=== PATIENT | male | born 1970 | race Caucasian/White ===

== ENCOUNTER 2017-08-01 20:33 | Observation (INO) | payer OTHER ==
[~2017-08-01] VITALS: Ht 182.9 cm; Wt 131.1 kg
[~2017-08-01 20:33] MED LIST: Aspirin PO; Enoxaparin Sodium SQ; SERT100T8 PO; WARF10TA45 PO; WARF4TAB7 PO
--- NOTE | 2017-08-01 20:50 | RAD ---
CT head without contrast 08/01/2017 CLINICAL INDICATION: Weakness, confusion, dizziness. COMPARISON: CT head 09/26/2014. TECHNIQUE: Multiple CT images of the head were obtained without contrast according to standard protocol. *One or more of the following individualized dose reduction techniques were utilized for this examination: 1. Automated exposure control. 2. Adjustment of the mA and/or kV according to patient size. 3. Use of iterative reconstruction technique. FINDINGS: No acute intracranial hemorrhage or extra-axial fluid collection. The bellamy-white matter interfaces are maintained. The ventricles and subarachnoid spaces are normal in size and configuration for age. The basal cisterns are patent. No midline shift. The visualized mastoid air cells and paranasal sinuses are well aerated. IMPRESSION: No acute intracranial hemorrhage. These results were discussed with Dr. Sal of the emergency service by telephone at 8:45 PM 08/01/[address] Deondre Jo. Electronically signed by: Deondre Jo MD (08/01/2017 8:46 PM) [facility]
[2017-08-01 21:17] LABS: BASO # 0.1 x10^3/uL (0.0-0.2); BASO % 1 % (0-3); EOS # 0.2 x10^3/uL (0.0-0.7); EOS % 3 % (0-3); HEMATOCRIT 43.3 % (39.0-53.0); HEMOGLOBIN 14.8 g/dL (13.0-17.5); LYMPH # 3.1 x10^3/uL (1.0-4.8); LYMPH % 34 % (24-48); MEAN CORPUSCULAR HEMOGLOBIN 31 pg (25-35); MEAN CORPUSCULAR HGB CONC 34 g/dL (31-37); MEAN CORPUSCULAR VOLUME 90 fL (79-100); MONO # 0.7 x10^3/uL (0.0-1.1); MONO % 8 % (0-9); NEUT # 4.9 x10^3uL (1.8-7.7); NEUT % 54 % (31-73); PLATELET COUNT 181 x10^3/uL (140-400); RED BLOOD COUNT 4.83 x10^6/uL (4.30-5.70); RED CELL DISTRIBUTION WIDTH 13.6 % (11.5-14.5); WHITE BLOOD COUNT 9.1 x10^3/uL (4.0-11.0)
[2017-08-01 21:25] LABS: BARBITURATES NEG (NEG); BENZODIAZEPINES NEG (NEG); CANNABINOIDS NEG (NEG); COCAINE NEG (NEG); METHADONE NEG (NEG); OPIATES NEG (NEG); PHENCYCLIDINE NEG (NEG)
[2017-08-01 21:26] LABS: ALBUMIN/GLOBULIN RATIO 1.1 (1.0-1.7); CREATININE 1.2 mg/dL (0.7-1.3); GFR 64.4; POTASSIUM 3.5 mmol/L (3.5-5.1); TOTAL BILIRUBIN 0.3 mg/dL (0.2-1.0); TOTAL PROTEIN 7.5 g/dL (6.4-8.2)
[2017-08-01 21:26] LABS: AMPHETAMINE/METHAMPHETAMINE NEG (NEG)
[2017-08-01] MEDS ORDERED: ONDANSETRON PF 4 MG/2 ML VIAL. IV ONE (22:00)
--- NOTE | 2017-08-01 22:10 | PHYS DOC ---
General Chief Complaint: NEURO SYMPTOMS/DEFICITS Stated Complaint: weakness Time Seen by MD: 20:38 Source: patient, family, old records Exam Limitations: no limitations Problems: History of Present Illness Initial Comments Patient is a 47-year-old male brought to the ED by his with possible stroke symptoms. Patient states that 20 minutes prior to arrival he was getting ready to go to bed when he felt a sudden onset of slurred speech, right face, arm and leg weakness and "heaviness." No headache chest pain or trouble breathing, no nausea vomiting or other symptoms. He brought this to the attention of his spouse felt he might have a right-sided facial droop and she brought into the emergency department for evaluation. On arrival code stroke activated, patient states that the weakness and droop symptoms resolved prior to arrival. Patient's only symptoms on arrival are persistent "heaviness" of his right arm and leg however patient was ambulatory and no actual weakness observed by ED staff. On exam there appears to be a decreased right-sided nasolabial fold however the patient's spouse states this is his normal appearance. Patient has history of PE in 2013, he also relays his brother had a pulmonary embolus patient was on Coumadin for approximately 8-9 months before he says his physician allowed him to discontinue it. Patient states he follows with Melanie Reyes. On arrival HR 47, BP 125/70, 96% RA NIHSS 1 (sensory) Timing/Duration: 1/2 hour, other Severity: moderate Modifying Factors: improves with other Associated Symptoms: weakness Allergies: Coded Allergies: Penicillins (Verified Allergy, Intermediate, 06/10/14) cortisone (Verified Allergy, Intermediate, 06/10/14) Past Medical History Medical History: other (PE, bradycardia, CLAUDE, anxiety) Surgical History: noncontributory, other (appendectomy, umbilical herniorrhaphy , cholecystectomy, tonsillectomy, uvulectomy, gastric sleeve) Psychosocial History: anxiety Social History Smoker: other (patient smoked for a very short period in the remote past) Alcohol: none Drugs: none Review of Systems Constitutional: denies chills, denies diaphoresis, denies fever, denies malaise EENTM: denies eye pain, denies blurred vision, denies ear pain, denies nose pain, denies throat pain Respiratory: denies cough, denies shortness of breath, denies wheezing Cardiovascular: denies chest pain, denies edema, denies palpitations, denies syncope Gastrointestinal: denies abdominal pain, denies diarrhea, denies nausea, denies vomiting Genitourinary: denies dysuria, denies frequency, denies hematuria Musculoskeletal: denies back pain, denies joint swelling, denies muscle pain, denies muscle stiffness, denies neck pain Psychiatric/Neurological: see HPI, denies headache Hematologic/Lymphatic: see HPI Physical Exam General Appearance: no apparent distress, obese Eyes: bilateral eye normal inspection, bilateral eye PERRL, bilateral eye EOMI Ear, Nose, Throat: hearing grossly normal, normal ENT inspection, normal pharynx Neck: non-tender, full range of motion, supple Respiratory: chest non-tender, lungs clear, normal breath sounds, no respiratory distress Cardiovascular: normal peripheral pulses, bradycardia Gastrointestinal: normal bowel sounds, non tender, soft Back: no CVA tenderness, no vertebral tenderness Extremities: normal range of motion, non-tender, normal inspection, no pedal edema, no calf tenderness, pelvis stable Neurologic/Psychiatric: deputy general counsel II-XII nml as tested, no motor/sensory deficits, alert, normal mood/affect, oriented x 3 Skin: normal color, warm/dry Orders, Labs, Meds EKG: Sinus bradycardia at 49 bpm, nonspecific T contour changes no STEMI. Interpreted by Dr. Bojorquez. Portable chest x-ray: Enlarged cardiac silhouette no acute cardiopulmonary process. Interpreted by Dr. Bojorquez. PATIENT: MIKE FLORENCE ACCOUNT: [id number] : 1970 LOCATION: ER AGE: 47 SEX: M EXAM STATUS: REG ER ORD. PHYSICIAN: MIRLANDE BOJORQUEZ DO REASON: CVA symptoms PROCEDURE: CT CODE STROKE HEAD WO CT head without contrast 08/01/2017 CLINICAL INDICATION: Weakness, confusion, dizziness. COMPARISON: CT head 09/26/2014. TECHNIQUE: Multiple CT images of the head were obtained without contrast according to standard protocol. *One or more of the following individualized dose reduction techniques were utilized for this examination: 1. Automated exposure control. 2. Adjustment of the mA and/or kV according to patient size. 3. Use of iterative reconstruction technique. FINDINGS: No acute intracranial hemorrhage or extra-axial fluid collection. The bellamy-white matter interfaces are maintained. The ventricles and subarachnoid spaces are normal in size and configuration for age. The basal cisterns are patent. No midline shift. The visualized mastoid air cells and paranasal sinuses are well aerated. IMPRESSION: No acute intracranial hemorrhage. These results were discussed with Dr. Bojorquez of the emergency service by telephone at 8:45 PM 08/01/[address] Krista Jo. Electronically signed by: Krista Jo MD (08/01/2017 8:46 PM) [facility] DICTATED AND SIGNED BY: KRISTA JO MD DATE: 08/01/172041 CC: YAMINI HALL DO; MIRLANDE BOJORQUEZ DO ~ D-dimer 1.03, no urine submitted in the emergency department otherwise labs are normal. I discussed findings with the patient and his family, given his history I feel admission to the hospital for further evaluation to rule out PE/DVT is indicated. Additionally he may have had a TIA. Patient is agreeable to inpatient treatment. 2232: I discussed the patient with on-call neurologist Dr. Conway, he is agreeable to consultation for weakness symptoms at [facility]. 2246: I discussed the patient with counterperson hospitalist Dr. Gibbons, he accepts inpatient telemetry admission to further evaluate nonspecific neurologic symptoms and to rule out DVT/PE. At the time of admission lower extremity Dopplers and CTA of the chest are pending. 2339: Patient left the department via EMS with no new or progressive symptoms. CTA of the chest reveals no PE, we'll hold off on anticoagulation until indicated. Impressions: Right sided sensory changes, possible TIA Elevated d-dimer History of PE Sinus bradycardia Departure Time of Disposition: 23:40 Disposition: ADMITTED INPATIENT Condition: STABLE MIRLANDE BOJORQUEZ DO Aug 01, 2017 22:10
[2017-08-01 22:30] LABS: SEDIMENTATION RATE 3 (0-15)
[2017-08-01] MEDS ORDERED: ONDANSETRON PF 4 MG/2 ML VIAL. IV PRN (23:00)
[2017-08-01] MEDS ORDERED: ACETAMINOPHEN 325 MG TABLET PO PRN (23:00)
[2017-08-01] MEDS ORDERED: IOHEXOL 300 MG/ML 75 ML VIAL. IV ONE (23:00)
--- NOTE | 2017-08-01 23:23 | RAD ---
CTA chest with contrast 08/01/2017 CLINICAL INDICATION: Shortness of air, elevated d-dimer, dizziness. COMPARISON: CTA chest 06/07/2014. TECHNIQUE: Multiple CTA images of the chest were obtained following the intravenous administration of Omnipaque 300 for optimization of the pulmonary arteries. MIPS were performed of the chest. *One or more of the following individualized dose reduction techniques were utilized for this examination: 1. Automated exposure control. 2. Adjustment of the mA and/or kV according to patient size. 3. Use of iterative reconstruction technique. CTA chest findings: Mild cardiomegaly without significant pericardial effusion. There is mild dilatation of the ascending thoracic aorta measuring 4.0 cm. No central or major segmental pulmonary artery filling defect. No axillary, mediastinal or hilar lymphadenopathy. There is mosaic attenuation. No pleural effusion, pneumothorax or focal consolidation. There is multilevel thoracic spondylosis no destructive osseous lesions are graft Limited images of the upper abdomen: Grossly unremarkable. IMPRESSION: 1. No central or major segmental pulmonary artery filling defect to suggest pulmonary embolism. 2. Mild cardiomegaly. 3. Mosaic attenuation in the lungs which may represent small airways disease. 4. Mild dilatation of the ascending thoracic aorta measuring 4.0 cm. Electronically signed by: Deondre Jo MD (08/01/2017 11:20 PM) [facility]
[2017-08-01 23:40] VITALS: BP 128/78
--- NOTE | 2017-08-01 23:40 | NUR ---
Pt was admitted to [address] [place] [address] from ER via [facility], accompanied by EMS and nursing staff. Pt self transferred from [facility] to bed independently. Pt came into ER tonight with c/o right sided heaviness/weakness. Pt has a hx of PE and stated "it feels like that again." CTA negative for PE. Pt no longer takes anticoagulant. Admission assessment completed. VSS. Pt placed on Telemetry, Vandana Gagnon noted on monitor. Pt with equal gripes and strength to all extremities. Health history & home medications reviewed with pt. Pt lives at home with and family. SCDs for VTE. Pt refuses flu & pneumonia vaccine. Pt was given written information regarding hospital policies, unit procedures and contact persons. Valuables were checked and left at bedside. Call light within reach.
[2017-08-02] MEDS ORDERED: SACC250C8 PO (00:24)
[2017-08-02 04:03] LABS: BASO # 0.1 x10^3/uL (0.0-0.2); BASO % 1 % (0-3); EOS # 0.1 x10^3/uL (0.0-0.7); EOS % 1 % (0-3); HEMATOCRIT 42.7 % (39.0-53.0); HEMOGLOBIN 14.4 g/dL (13.0-17.5); LYMPH # 1.7 x10^3/uL (1.0-4.8); LYMPH % 18 % (24-48); MEAN CORPUSCULAR HEMOGLOBIN 30 pg (25-35); MEAN CORPUSCULAR HGB CONC 34 g/dL (31-37); MEAN CORPUSCULAR VOLUME 90 fL (79-100); MONO # 0.6 x10^3/uL (0.0-1.1); MONO % 6 % (0-9); NEUT # 6.9 x10^3uL (1.8-7.7); NEUT % 75 % (31-73); PLATELET COUNT 171 x10^3/uL (140-400); RED BLOOD COUNT 4.73 x10^6/uL (4.30-5.70); RED CELL DISTRIBUTION WIDTH 13.5 % (11.5-14.5); WHITE BLOOD COUNT 9.2 x10^3/uL (4.0-11.0)
[2017-08-02 04:19] LABS: CALCIUM 8.8 mg/dL (8.5-10.1); GFR 79.4; POTASSIUM 4.6 mmol/L (3.5-5.1)
[2017-08-02 05:35] VITALS: BP 120/75
--- NOTE | 2017-08-02 07:00 | EKG ---
[address] [address] Test Date: 2017-08-01 Test Time: 21:02:08 Pat Name: MIKE FLORENCE Department: Room: 115 A Gender: M [employer] Supervisor: ASHLYN : 1970 Requested By: MIRLANDE BOJORQUEZ Order Number: [id number] Reading MD: Nathan Naranjo MD Measurements Intervals [place] Rate: 49 P: 25 NV: 130 QRS: -6 QRSD: 116 T: 28 QT: 484 QTc: 440 Interpretive Statements SINUS BRADYCARDIA NON-SPECIFIC ST/T CHANGES Electronically Signed On 08-10-2017 17:27:02 [employer] PROJECT MANAGER by Nathan Naranjo MD
--- NOTE | 2017-08-02 08:02 | RAD ---
Indication: Dizziness and weakness. Time of exam 9 hours. Correlation is made with prior chest from 09/26/2014. The heart remains enlarged but stable. The lungs are clear. The pulmonary vascularity is normal. No infiltrate, effusion or pneumothorax is seen. Impression: Cardiomegaly. No acute feature is detected.
--- NOTE | 2017-08-02 08:47 | RAD ---
Bilateral lower extremity venous duplex ultrasound. 08/02/2017 Indication: Pulmonary embolism. Elevated d-dimer. Evaluate for source of PE. Comparison study: None Discussion: Sonographic evaluation of the deep veins of bilateral lower extremities was performed. This includes grayscale imaging and color duplex imaging with spectral analysis. No evidence of deep venous thrombosis is seen. Interrogated veins are compressible and demonstrate augmentable blood flow and color Doppler imaging. Impression: No evidence of deep venous thrombosis involving either lower extremity.
--- NOTE | 2017-08-02 09:05 | NUR ---
Notified Dr. Naranjo office for cardiology consult.
--- NOTE | 2017-08-02 09:22 | PDOC2 ---
JDAMIRA Allen SANCHEZ 08/02/17 0922: CONSULT Date of Admission DATE: 08/02/17 TIME: 09:19 Reason for Consult: bradycardia Problem List Problems Medical Problems: (1) Elevated d-dimer Status: Acute (2) Neurological symptoms Status: Acute History of Present Illness Patient is a 47-year-old male brought to the ED by his with possible stroke symptoms. He reports sudden onset of slurred speech, right face, arm and leg weakness and "heaviness" that started while getting ready for bed. He told his about his symptoms and she apparently thought he had some facial drooping on the right so brought him to the ED. On arrival his only persistent symptoms were some residual heaviness of right sided extremities. His symptoms lasted total about 40 minutes. He denies any chest pain, dyspnea, congestive symptoms or syncope. He was noted to be bradycardic so cardiology consult was called. He reports that his heart rate normally runs low in the 50s. He denies any exertional symptoms or fatigue. He is currently symptom free. Past Medical History Medical History: other (PE, bradycardia, CLAUDE, anxiety, obesity, neurocardiogenic syncope) Past Surgical History Surgical History: noncontributory, other (appendectomy, umbilical herniorrhaphy , cholecystectomy, tonsillectomy, uvulectomy, gastric sleeve) Family History brother - coagulopathy Social History Smoker: remote Alcohol: none Drugs: none Current Medications Current Medications Ondansetron HCl (Zofran) 4 mg 1X ONCE IV Last administered on 08/01/17 22:02 ; Start 08/01/17 at 22:00; Stop 08/01/17 at 22:06; Status DC Iohexol (Omnipaque 300 Mg/ml) 75 ml 1X ONCE IV Last administered on 08/01/17 23:02; Start 08/01/17 at 23:00; Stop 08/01/17 at 23:02; Status DC Ondansetron HCl (Zofran) 4 mg PRN Q4HRS PRN IV NAUSEA/VOMITING; Start 08/01/17 at 23:00; Stop 08/02/17 at 22:59 Acetaminophen (Tylenol) 650 mg PRN Q4HRS PRN PO FEVER; Start 08/01/17 at 23:00 ; Stop 08/02/17 at 22:59 Active Scripts Active Reported Probiotic (Saccharomyces Boulardii) 250 Mg Capsule 1 Cap PO HS LAST DOSE GIVEN: DATE: TIME: NEXT DOSE DUE: DATE: TIME: Sertraline Hcl 100 Mg Tablet 200 Mg PO HS LAST DOSE GIVEN: DATE: TIME: NEXT DOSE DUE: DATE: TIME: Allergies: Coded Allergies: Penicillins (Verified Allergy, Intermediate, 06/10/14) cortisone (Verified Allergy, Intermediate, 06/10/14) Review of System as per HPI or negative General: Alert, Oriented X3, Cooperative, No acute distress HEENT: Atraumatic, EOMI Lungs: Clear to auscultation, Normal air movement Heart: Normal S1, Normal S2, Other (bradycardic) Abdomen: Normal bowel sounds, Soft Extremities: No cyanosis, No edema, Normal pulses Neuro: Normal speech, Strength at 5/5 X4 ext Psych/Mental Status: Mental status NL, Mood NL VITALS Vital Signs Date Time Temp Pulse Resp B/P (MAP) Pulse Ox O2 Delivery O2 Flow Rate FiO2 08/02/17 05:35 97.2 48 18 120/75 (90) 96 Room Air Labs Laboratory Tests Test 08/01/17 20:43 08/01/17 20:51 08/02/17 03:50 White Blood Count 9.1 x10^3/uL (4.0-11.0) 9.2 x10^3/uL (4.0-11.0) Red Blood Count 4.83 x10^6/uL (4.30-5.70) 4.73 x10^6/uL (4.30-5.70) Hemoglobin 14.8 g/dL (13.0-17.5) 14.4 g/dL (13.0-17.5) Hematocrit 43.3 % (39.0-53.0) 42.7 % (39.0-53.0) Mean Corpuscular Volume 90 fL (79-100) 90 fL (79-100) Mean Corpuscular Hemoglobin 31 pg (25-35) 30 pg (25-35) Mean Corpuscular Hemoglobin Concent 34 g/dL (31-37) 34 g/dL (31-37) Red Cell Distribution Width 13.6 % (11.5-14.5) 13.5 % (11.5-14.5) Platelet Count 181 x10^3/uL (140-400) 171 x10^3/uL (140-400) Neutrophils (%) (Auto) 54 % (31-73) 75 % (31-73) Lymphocytes (%) (Auto) 34 % (24-48) 18 % (24-48) Monocytes (%) (Auto) 8 % (0-9) 6 % (0-9) Eosinophils (%) (Auto) 3 % (0-3) 1 % (0-3) Basophils (%) (Auto) 1 % (0-3) 1 % (0-3) Neutrophils # (Auto) 4.9 x10^3uL (1.8-7.7) 6.9 x10^3uL (1.8-7.7) Lymphocytes # (Auto) 3.1 x10^3/uL (1.0-4.8) 1.7 x10^3/uL (1.0-4.8) Monocytes # (Auto) 0.7 x10^3/uL (0.0-1.1) 0.6 x10^3/uL (0.0-1.1) Eosinophils # (Auto) 0.2 x10^3/uL (0.0-0.7) 0.1 x10^3/uL (0.0-0.7) Basophils # (Auto) 0.1 x10^3/uL (0.0-0.2) 0.1 x10^3/uL (0.0-0.2) Erythrocyte Sedimentation Rate 3 (0-15) Prothrombin Time 10.1 SEC (9.4-11.4) Prothromb Time International Ratio 1.0 (0.9-1.1) Activated Partial Thromboplast Time 23 SEC (23-33) D-Dimer (Anjana) 1.03 mg/L (0.00-0.50) Sodium Level 144 mmol/L (136-145) 143 mmol/L (136-145) Potassium Level 3.5 mmol/L (3.5-5.1) 4.6 mmol/L (3.5-5.1) Chloride Level 106 mmol/L (98-107) 107 mmol/L (98-107) Carbon Dioxide Level 28 mmol/L (21-32) 29 mmol/L (21-32) Anion Gap 10 (6-14) 7 (6-14) Blood Urea Nitrogen 18 mg/dL (8-26) 18 mg/dL (8-26) Creatinine 1.2 mg/dL (0.7-1.3) 1.0 mg/dL (0.7-1.3) Estimated GFR (Cockcroft-Gault) 64.4 79.4 BUN/Creatinine Ratio 15 (6-20) Glucose Level 98 mg/dL (70-99) 113 mg/dL (70-99) Glucose (Fingerstick) 98 mg/dL (70-99) Calcium Level 9.0 mg/dL (8.5-10.1) 8.8 mg/dL (8.5-10.1) Total Bilirubin 0.3 mg/dL (0.2-1.0) Aspartate Amino Transf (AST/SGOT) 10 U/L (15-37) Alanine Aminotransferase (ALT/SGPT) 21 U/L (16-63) Alkaline Phosphatase 75 U/L (46-116) Creatine Kinase 73 U/L (39-308) Troponin I Quantitative < 0.017 ng/mL (0-0.055) < 0.017 ng/mL (0-0.055) MD-Loc-W-Type Natriuretic Peptide 43 pg/mL (0-124) Total Protein 7.5 g/dL (6.4-8.2) Albumin 4.0 g/dL (3.4-5.0) Albumin/Globulin Ratio 1.1 (1.0-1.7) Urine Opiates Screen Neg (NEG) Urine Methadone Screen Neg (NEG) Urine Barbiturates Neg (NEG) Urine Phencyclidine Screen Neg (NEG) Urine Amphetamine/Methamphetamine Neg (NEG) Urine Benzodiazepines Screen Neg (NEG) Urine Cocaine Screen Neg (NEG) Urine Cannabinoids Screen Neg (NEG) Urine Ethyl Alcohol Neg (NEG) Images CTA IMPRESSION: 1. No central or major segmental pulmonary artery filling defect to suggest pulmonary embolism. 2. Mild cardiomegaly. 3. Mosaic attenuation in the lungs which may represent small airways disease. 4. Mild dilatation of the ascending thoracic aorta measuring 4.0 cm. LEUS negative for DVT CXR - Impression: Cardiomegaly. No acute feature is detected. EKG - sinus bradycardia, left axis, IVCD, no acute abn Assessment/Plan 1. bradycardia - he appears to have appropriate chronotropic response. He remains asymptomatic. check TSH/T4. Suggest outpatient event monitoring. 2. TIA - echo with bubble study. Neuro following. 3. CLAUDE - outpatient home sleep study and if abn, CPAP titration for new settings. Problems: MELANIA HOFFMAN MD 08/02/17 1614: CONSULT Allergies: Coded Allergies: Penicillins (Verified Allergy, Intermediate, 06/10/14) cortisone (Verified Allergy, Intermediate, 06/10/14) Assessment/Plan Patient seen and examined. Agree with USED CAR MANAGER's assessment and plan. Telemetry did not show any significant pauses. Check 2-D echo to assess LV systolic function and bubble study to rule out PFO/ ASD. Consider initiation of aspirin for possible TIA. Defer this to neurology. Plan for event monitor as an outpatient. Thank you for your consultation. Problems: AMIRA MILES APRN Aug 02, 2017 09:22 MELANIA HOFFMAN MD Aug 02, 2017 16:14
--- NOTE | 2017-08-02 09:41 | NUR ---
Pt has been out in the [place] walking with PT/OT, seen by Dr. Conway and Lizzy BYNUM. Couple new tests/labs ordered for pt. Denies pain or further needs at this time. Telemetry remains on and bradycardia noted. No weakness or facial drooping noted, neuro check was fine. Recommendations by Lizzy BYNUM, for pt to have a home sleep study and an outpatient event marker then follow up in one month with cardiology.
[2017-08-02 10:59] VITALS: BP 119/73
[2017-08-02 14:57] VITALS: BP 121/73
[2017-08-02 15:08] LABS: FREE T4 0.76 ng/dL (0.76-1.46); THYROID STIM HORMONE (TSH) 0.787 uIU/mL (0.358-3.740)
[2017-08-02] MEDS ORDERED: SERTRALINE 100 MG TABLET. PO SCH (16:00)
--- NOTE | 2017-08-02 17:13 | CARD ---
APPROVED REPORT EXAM: Two-dimensional and M-mode echocardiogram with Doppler and color Doppler. Other Information Quality : Good INDICATION CVA/TIA Echo Enhancing Agent Indication: Rule Out Septal Defect 2D DIMENSIONS Left Atrium(2D)4.5 (1.6-4.0cm)IVSd1.4 (0.7-1.1cm) Aortic Root(2D)3.6 (2.0-3.7cm)LVDd5.6 (3.9-5.9cm) LVOT Diameter2.2 (1.8-2.4cm)PWd1.3 (0.7-1.1cm) LVDs3.8 (2.5-4.0cm)FS (%) 32.3 % SV91.0 ml Aortic Valve AoV Peak Rafa.134.4cm/sAoV VTI34.5cm AO Peak GR.7.2mmHgLVOT Peak Rafa.119.5cm/s LVOT VTI 30.16cmAO Mean GR.4mmHg PAULINO (VMAX)3.07zu2MHJ (VTI)3.35cm2 Mitral Valve MV E Qwalhfdl42.9cm/sMV DECEL SAOP310gm MV A Pintcsgb43.8cm/sE/A Ratio1.8 Tricuspid Valve TR P. Lehdmpxx805ts/sRAP DUAOENIQ3edMj TR Peak Gr.53jbYbHGUN82ptVk LEFT VENTRICLE The left ventricle is normal size. There is mild concentric left ventricular hypertrophy. Left ventri elana systolic function is low normal. The Ejection Fraction is 50-55%. There is normal LV segmental wa ll motion. Transmitral Doppler flow pattern is Grade I-abnormal relaxation pattern. RIGHT VENTRICLE The right ventricle is normal size. The right ventricular systolic function is normal. ATRIA The left atrium size is normal. The right atrium size is normal. The interatrial septum is intact wit h no evidence for an atrial septal defect or patent foramen ovale as noted on 2-D or Doppler imaging. No obvious atrial septal defect or patent foramen ovale by saline contrast. Negative bubble study. AORTIC VALVE The aortic valve is normal in structure and function. Doppler and Color Flow revealed no significant aortic regurgitation. There is no significant aortic valvular stenosis. MITRAL VALVE The mitral valve is normal in structure and function. There is no evidence of mitral valve prolapse. There is no mitral valve stenosis. Doppler and Color Flow revealed no mitral valve regurgitation note d. TRICUSPID VALVE The tricuspid valve is normal in structure and function. Doppler and Color Flow revealed trace tricus pid valve regurgitation. The PA pressure was estimated at 18 mmHg. There is no tricuspid valve prolap se or vegetation. There is no tricuspid valve stenosis. PULMONIC VALVE The pulmonary valve is normal in structure and function. Doppler and Color Flow revealed no pulmonic valvular regurgitation. There is no pulmonic valvular stenosis. GREAT VESSELS The aortic root is normal in size. The ascending aorta is normal in size. The IVC is normal in size a nd collapses >50% with inspiration. PERICARDIAL EFFUSION There is no pleural effusion. There is no evidence of significant pericardial effusion. Critical Notification Critical Value: No <Conclusion> The left ventricle is normal size. Left ventricle systolic function is low normal. The Ejection Fraction is 50-55%. There is mild concentric left ventricular hypertrophy. The interatrial septum is intact with no evidence for an atrial septal defect or patent foramen ovale as noted on 2-D or Doppler imaging. No obvious atrial septal defect or patent foramen ovale by saline contrast. Negative bubble study. There is no significant aortic valvular stenosis. Doppler and Color Flow revealed no significant aortic regurgitation. Doppler and Color Flow revealed no mitral valve regurgitation noted. Doppler and Color Flow revealed trace tricuspid valve regurgitation. The PA pressure was estimated at 18 mmHg.
--- NOTE | 2017-08-02 18:06 | NUR ---
All tests are completed and paged Dr. Conway and Dr. Gibbons to check on dismissal and follow ups
--- NOTE | 2017-08-02 18:37 | RAD ---
BILATERAL DUPLEX CAROTID SONOGRAPHY History: Right-sided weakness. Technique: Duplex sonography of the cervical portion of both carotid arteries was performed. Real-time grayscale, color flow Doppler, and Doppler spectral waveform analysis is performed. PQRS Compliance Statement - Stenosis calculations for CT, MR and conventional angiography are based upon measurement of the distal ICA diameter in accordance with the NASCET methodology. Stenosis calculations for carotid ultrasound studies are derived from validated velocity criteria which are known to correlate with the NASCET methodology. Findings: Right side: Peak systolic flow velocity of the CCA is 109 cm/sec. Peak systolic flow velocity of the ICA is 78 cm/sec. The ICA/CCA ratio is 1.2. Peak end diastolic flow velocity of the ICA is 26 cm/sec. The peak systolic velocity of the ECA is 72 cm/sec. No significant plaque formation is identified. Left side: Peak systolic flow velocity of the CCA is 96 cm/sec. Peak systolic flow velocity of the ICA is 70 cm/sec. The ICA/CCA ratio is 0.9. Peak end diastolic flow velocity of the ICA is 30 cm/sec. Peak systolic flow velocity of the ECA is 70 cm/sec. No significant plaque formation is identified. Bilateral vertebral arteries demonstrate antegrade flow. IMPRESSION: No hemodynamically significant carotid stenosis identified. Electronically signed by: Analilia Gomez MD (08/02/2017 6:34 PM) [id number]
[2017-08-02] MEDS ORDERED: ASPI-630 PO ×2 (19:04→19:05)
[2017-08-02 19:25] VITALS: BP 128/77
--- NOTE | 2017-08-02 20:25 | NUR ---
Pt DC'd home with and belongings. Telemetry and IV removed. Discharge paperwork reviewed with pt & . Follow up instructions and new medications reviewed and understanding verbalized. Pt walked off unit with to leave by private vehicle.
[2017-08-02] MEDS ORDERED: SACCHAROMYCES BOULARDII 250 MG CAPSULE. PO SCH (21:00)
--- NOTE | 2017-08-02 23:30 | HP ---
ADMIT DATE: 08/01/2017 HISTORY OF PRESENT ILLNESS: The patient is a 47-year-old male patient who was brought to the Emergency Room by his for possible stroke symptoms. He reports sudden onset of slurred speech, right face, arm and leg weakness, and heaviness that started while getting ready for sleep. She apparently told him that he had some facial drooping on the right, so brought him to the Emergency Room. On arrival, the only persistent symptom was some residual heaviness in his right side extremity. His symptoms lasted a total of about 40 minutes. He denied any chest pain, dyspnea, shortness of breath, orthopnea, paroxysmal nocturnal dyspnea. He was noted to be bradycardic with the heart rate in the 50s and 40s. He was extensively investigated in the Emergency Room and his lab works were basically unremarkable. His first set of cardiac enzyme was less than 0.17. He has extensive imaging. CT scan of the head was unremarkable and showed no acute intracranial hemorrhage. He has a CT angio of the chest as he has elevated D-dimer showed no central or major segmental pulmonary artery filling defect to suggest pulmonary embolism, has mild cardiomegaly, mosaic attenuation of the lung, which may represent small airway disease, mild dilatation of the ascending thoracic aorta measuring about 4 cm. He has bilateral lower extremities venous Doppler ultrasound which showed no evidence of deep vein thrombosis involving either lower extremity. He was admitted to consult the rat breeder as well as the neurologist. PAST MEDICAL HISTORY: Significant for morbid obesity with obstructive sleep apnea. He has also history of pulmonary embolism treated for 9 months with Coumadin and Eliquis. PAST SURGICAL HISTORY: Significant for gastric sleeve surgery, cholecystectomy, appendectomy, uvulopalatoplasty, and vein stripping of the right lower extremity. ALLERGIES: He is allergic to PENICILLIN and CORTISONE. MEDICATIONS: He is currently on following medications: He is on a probiotic 1 capsule at bedtime and he is also on sertraline 200 mg at bedtime. FAMILY HISTORY: He has 2 brothers, 1 older and 1 younger. The older brother has history of pulmonary embolism. Father in his 60s because of gastric carcinoma. Mother is still alive and survived a breast cancer. She is status post bilateral mastectomy. SOCIAL HISTORY: He is , has 2 sons. He is an ex-smoker, quit years ago. He does not drink alcohol or use recreational drugs. 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 REVIEW OF SYSTEMS: He denied any blurring of vision, cataract, glaucoma, or macular degeneration. Denied any earache, tinnitus, or sensorineural deafness. Denied any nosebleeds, stuffy nose, or postnasal drip. Denied any sore throat, sore tongue, toothache, hoarseness of voice or difficulty swallowing. Denied any nausea, vomiting, diarrhea, or constipation. Denied any hematemesis, melena, or hematochezia. Denied any dysuria, frequency, or hematuria. Denied any chest pain, shortness of breath, orthopnea, paroxysmal nocturnal dyspnea. Denied any cough, phlegm, or hemoptysis. OBJECTIVE: GENERAL: On arrival to the Emergency Room, he looked well and was clearly in no apparent distress. No pallor, jaundice, cyanosis, or thyromegaly. No jugular venous distension. No lower limb edema. VITAL SIGNS: His heart rate was 47, blood pressure was 125/70, temperature was 98, respiratory rate was 16, and oxygen saturation was 96%. HEAD, EYES, EARS, NOSE AND THROAT: Normocephalic, atraumatic. NECK: Supple. HEART: Showed normal first and second heart sounds with no gallop, rub, or murmur. CHEST: Clear to auscultation. No crepitation or rhonchi. ABDOMEN: Distended, soft, nontender. No guarding or rigidity. No organomegaly. Hernial orifices intact. Bowel sounds normal. NEUROLOGICAL: He was awake, alert, responding appropriately. Cranial nerves intact. He moves extremities without difficulty. According to the ER physician, he did ambulate without any actual weakness as observed by the Emergency Room staff and apparently the only abnormality that was seen in the Emergency Room was decreased right-sided nasolabial fold. However, the patient's spouse stated that this is his normal appearance. His lab work on admission showed that his white cell count was 9100, hemoglobin 14.8, hematocrit 43, MCV 90, and platelet count of 181,000 with normal manual differential. His chemistry showed a serum sodium of 144, potassium 3.5, chloride 106, bicarbonate 28, anion gap of 10, BUN 18, creatinine 1.2, estimated GFR was 64 mL per minute. His glucose was 98, calcium was 9. Total bilirubin, AST, ALT, alkaline phosphatase were normal. His total protein was 7.5, albumin 4. His first set of cardiac enzyme was less than 0.017. His prothrombin time was 10.1, INR 1, aPTT 24, and D-dimer was 1.03. She has had a CT scan of the head, which basically showed no acute intracranial hemorrhage or extraaxial fluid collection. The bellamy white matter interfaces are maintained. The ventricles and subarachnoid spaces are normal in size and configuration for age. The basal cisterns are patent. No midline shift. The visualized mastoid air cells and paranasal sinuses are well aerated. His chest x-ray showed cardiomegaly, but no acute fracture detected. A CT angio of the chest showed no central or major segmental pulmonary artery filling defect to suggest pulmonary embolism. He has mild cardiomegaly, mosaic attenuation the lungs, which may represent small airway disease and mild dilatation of the ascending thoracic aorta measuring 4 cm. His bilateral lower extremity venous ultrasounds were negative. PLAN: The patient was admitted to do more sets of cardiac enzyme. Consult Neurology and Cardiology and also arrange for an echocardiogram with bubble study and bilateral carotid artery Doppler ultrasound. ANUPAMA SOLARES MD DR: KEN/omid JOB#: [id number] / [id number]
--- NOTE | 2017-08-03 23:22 | CONS ---
DATE OF CONSULTATION: REFERRING PHYSICIAN: Dr. Gibbons. REASON FOR CONSULTATION: Rule out stroke versus TIA. HISTORY OF PRESENT ILLNESS: This is a 47-year-old male, who was admitted to Emergency Room after he presented with symptoms of sudden onset of slurred speech; right face, arm, and leg weakness described as heaviness started last night. According to the patient, the symptoms lasted approximately 3 hours before it resolved completely. During the interview, he denies headaches, visual disturbances, nausea, vomiting, chest pain, shortness of breath or palpitation, dysphagia, or vertigo. PAST MEDICAL HISTORY: Significant for pulmonary embolism diagnosed several days ago, bradycardia, obstructive sleep apnea, anxiety, obesity, and syncope associated. PAST SURGICAL HISTORY: Significant for appendectomy, umbilical herniorrhaphy, cholecystectomy, tonsillectomy, uvulectomy, and gastric sleeve. FAMILY HISTORY: His father had coagulopathy. SOCIAL HISTORY: The patient denies smoking, alcohol drinking, or illicit drug use. CURRENT MEDICATIONS: ____ Zofran, Tylenol. ALLERGIES: PENICILLIN AND CORTISONE. REVIEW OF SYSTEMS: A 10-point review of system was performed as mentioned above in history of present illness, otherwise unremarkable. PHYSICAL EXAMINATION: GENERAL: Well developed, obese white male, not in acute distress. He weighs 289 pounds. VITAL SIGNS: Blood pressure 128/77, respiratory rate 18, pulse is 45, oxygen saturation is 97% on room air, and temperature 98.1. HEENT: Normocephalic, atraumatic, otherwise unremarkable. NECK: Supple. Negative for carotid bruit, lymphadenopathy, or thyromegaly. LUNGS: Clear to A and P. CARDIOVASCULAR: Regular rate and rhythm, normal S1, S2. There is no S3, S4, or murmur. ABDOMEN: Soft. Bowel sounds positive. EXTREMITIES: Negative for cyanosis, clubbing, or pitting edema. NEUROLOGICAL: Mental Status: The patient is alert and oriented x 3. The speech is fluent. There is no language dysfunction. Memory is intact. Judgment and abstract thinking are normal. The patient denies hallucination or delusion. CRANIAL NERVES: Visual samano are full. The pupils are reactive to light and accommodation. The extraocular movements are intact. There is no nystagmus. There is no facial motor or sensory deficit. Hearing is intact bilaterally. The palate is elevated symmetrically. Sternocleidomastoid muscles are powerful bilaterally. The patient shrugs his shoulders symmetrically and protrudes his tongue in the midline without fasciculation or atrophy. MOTOR: No focal muscle bulk was seen. The tone was normal. The strength was 5/5 throughout. SENSORY: Revealed normal pinprick, light touch, vibratory, and position senses. Deep tendon reflexes were symmetric and active without pathology responses. Gait and coordination were normal. DIAGNOSTIC: Initial nonenhanced head CT scan revealed no acute intracranial process otherwise unremarkable. Chest x-ray revealed evidence of cardiomegaly. Chest CT angio revealed no evidence of pulmonary embolism. There was mild dilatation of the ascending thoracic aorta measuring 4.0 cm. Venous sonogram of the lower extremities revealed no evidence of DVT. Carotid Doppler study, there is no significant carotid artery stenosis and echocardiogram was unremarkable with ejection fraction of 50-55%. EKG revealed sinus bradycardia. LABORATORY DATA: CBC revealed white blood cells of 9200, hemoglobin 14.4, hematocrit 42.7, platelet count 171,000. Chemistry revealed sodium of 143, potassium 4.6, chloride 107, CO2 of 29. BUN 18, creatinine 1, glucose is 113, calcium 8.8, magnesium 2. Liver enzymes are normal except for low AST. Cardiac enzymes are normal with ____ at 15.7. Troponin level is normal, less than 0.017. Lipid profile revealed high cholesterol at 215 and high LDL at 158 with low HDL at 45. T4 and TSH are normal. Urinalysis negative for urinary tract infections and urine drug screen is negative. IMPRESSION: 1. Sudden onset of right-sided weakness with current normal neurological examination and negative stroke workup for stroke. Questionable transient ischemic attack. 2. Bradycardia. 3. Hyperlipidemia. 4. Obstructive sleep apnea. PLAN: 1. Treat the underlying hyperlipidemia. 2. The patient to have a sleep study on an outpatient basis. 3. Follow up with Cardiology regarding dilated thoracic aorta. Otherwise continue with current management initiated by Dr. Gibbons and Cardiology. M Rina GOLDSTEIN MD DR: MALIK/omid JOB#: [id number] / [id number]
--- NOTE | 2017-08-04 00:31 | DS ---
DATE OF DISCHARGE: 08/02/2017 HISTORY OF PRESENT ILLNESS: The patient is a 47-year-old male patient who was admitted with possible stroke symptoms. He reports sudden onset of slurred speech, right face, arm, and leg weakness and heaviness that started while getting ready for sleep. He apparently told he was noted to have some facial drooping on the right side noted by his and therefore, he was brought to the Emergency Room. On arrival, the only persistent symptom are some residual heaviness in his right side extremities. This symptom lasted a total of 40 minutes. He denied any chest pain, shortness of breath, orthopnea or paroxysmal nocturnal dyspnea. He was also noted to be bradycardic with a heart rate in the 40s. LABORATORY AND DIAGNOSTIC STUDIES: He was extensively investigated in the Emergency Room and initial lab works are unremarkable. His first troponin was less than 0.017 and he was admitted and we did consult both the Cardiology team as well as Neurology, has 3 sets of cardiac enzymes, ruled out myocardial infarction. EKG showed a sinus bradycardia. His fasting lipid profile showed that his serum triglycerides were normal at 64, total cholesterol was slightly high at 215, LDL was high at 158, VLDL was 12, and HDL was 45. His TSH was 0.787 and free T4 was 0.76. His prothrombin time was 10.1, INR 1, aPTT was 23 and D-dimer was 1.03. He was seen in consultation by the Cardiology, had had a CT scan of the head, which was unremarkable, which showed no acute intracranial hemorrhage or extraaxial fluid collection. The bellamy white matter differentiation are maintained. The ventricles and subarachnoid spaces are normal in size and configuration for age. The basal cisterns are patent, no midline shift. The visualized mastoid air cells and paranasal sinuses are well aerated. Because of elevated D-dimer, he underwent CT angio of the chest, which showed no central or major segmental pulmonary artery filling defects to suggest pulmonary embolism, mild cardiomegaly, mosaic attenuation of the lungs, which may represent small airway disease and mild dilatation of the ascending thoracic aorta measuring about 4 cm. He has venous Doppler ultrasound of both lower extremities, which showed no evidence of deep vein thrombosis involving either lower extremity and bilateral carotid Doppler ultrasound showed that there is no significant plaque formation identified and bilateral vertebral arteries demonstrate antegrade flow. IMPRESSION: The patient has hemodynamically significant carotid stenosis identified. The Cardiology team suggested that the patient should follow with their office to arrange for an event monitor and I recommended that he should be on a baby aspirin. DISCHARGE MEDICATIONS: He was discharged home to continue aspirin 81 mg once a day, Saccharomyces boulardii for probiotic 1 capsule once a day, sertraline 200 mg once a day at bedtime. FINAL DISCHARGE DIAGNOSES: Right-sided sensory changes, possible transient ischemic attack, elevated D-dimer, but negative CT scan of the chest for pulmonary embolism. He has history of pulmonary embolism and sinus bradycardia. ANUPAMA SOLARES MD DR: KEN/omid JOB#: [id number] / [id number]
== END 2017-08-02 20:25 | disposition home or self-care (01) ==
LOC: ER 20:33 → INTOOBSV 22:59 → 1 SOUTH 22:59
PROVIDERS: ADMIT Internal Medicine; ATTEND Internal Medicine
DX: I65.29 Occlusion and stenosis of unspecified carotid artery (principal); I51.7 Cardiomegaly; R20.8 Other disturbances of skin sensation; G47.33 Obstructive sleep apnea (adult) (pediatric); E78.5 Hyperlipidemia, unspecified; F17.200 Nicotine dependence, unspecified, uncomplicated; Z86.711 Personal history of pulmonary embolism; Z80.0 Family history of malignant neoplasm of digestive organs; Z80.3 Family history of malignant neoplasm of breast; Z83.2 Family history of diseases of the blood and blood-forming organs and certain disorders involving the immune mechanism
CPT/HCPCS: 36415; 70450; 71010; 71275; 80048; 80053; 80061; 80307; 82550; 82947; 83735; 83880; 84439; 84443; 84484; 85025; 85379; 85610; 85651; 85730; 93005; 93880; 93970; 96374; 97165; 99285; C8929; G0378; G0379; G8987; G8988; G8989; J2405; Q9967; G0479

== ENCOUNTER 2018-05-07 16:37 | Emergency (ER) | payer OTHER ==
[~2018-05-07] VITALS: Ht 182.9 cm; Wt 139.4 kg
[~2018-05-07 16:37] MED LIST changes: +ASPI-630 PO; +SACC250C8 PO; +WARF4TAB64 PO; -WARF4TAB7 PO
--- NOTE | 2018-05-07 17:37 | RAD ---
CT Head W/O Contrast: History: Dizziness and headache today Comparison: none Axial images were obtained without contrast. The bellamy and white matter appears normal and symmetrical for the patients age. There is no mass effect, extraaxial fluid collections or hydrocephalus. There is no gross bleed. There is no focal loss of bellamy-white matter distinction to suggest acute ischemia, i.e. stroke. Impression: No acute findings. RS Compliance Statement: One or more of the following individualized dose reduction techniques were utilized for this examination: 1. Automated exposure control 2. Adjustment of the mA and/or kV according to patient size 3. Use of iterative reconstruction technique Electronically signed by: Andrea Manzo III, MD (05/07/2018 5:33 PM) [facility]
[2018-05-07 17:40] LABS: BASO % 1 % (0-3); EOS # 0.1 x10^3/uL (0.0-0.7); EOS % 1 % (0-3); HEMATOCRIT 42.5 % (39.0-53.0); HEMOGLOBIN 14.5 g/dL (13.0-17.5); LYMPH # 1.7 x10^3/uL (1.0-4.8); LYMPH % 22 % (24-48); MEAN CORPUSCULAR HEMOGLOBIN 30 pg (25-35); MEAN CORPUSCULAR HGB CONC 34 g/dL (31-37); MEAN CORPUSCULAR VOLUME 88 fL (79-100); MONO # 0.6 x10^3/uL (0.0-1.1); MONO % 7 % (0-9); NEUT # 5.2 x10^3uL (1.8-7.7); NEUT % 69 % (31-73); PLATELET COUNT 175 x10^3/uL (140-400); RED BLOOD COUNT 4.81 x10^6/uL (4.30-5.70); RED CELL DISTRIBUTION WIDTH 13.2 % (11.5-14.5); WHITE BLOOD COUNT 7.6 x10^3/uL (4.0-11.0)
--- NOTE | 2018-05-07 17:42 | PHYS DOC ---
Past History Past Medical History: Anxiety, Other Past Surgical History: Appendectomy, Cholecystectomy, Tonsillectomy, Other Smoking: Non-smoker Alcohol Use: None Drug Use: None Adult General Chief Complaint Chief Complaint: DIZZY/LIGHT HEADED HPI HPI HPI provided by my colleague Dr. Tian Patient is a 48 year old male who presents with complaining of dizziness. Patient states 20 minutes prior to arrival while he was eating lunch he felt dizziness with diaphoresis and near syncope. Patient complaining of mild nausea without palpitation, chest pain, focal neuro deficit, headache, vomiting, fever and chills. Patient states he had the same problem several months ago and was seen in this emergency room with negative extensive evaluation. Patient denies any medical problem except for anxiety and denies using drugs or alcohol or smoking cigarettes. According to EMR patient has had multiple emergency room visits for several years with complaining of dizziness. Allergies Allergies Allergies Coded Allergies Type Severity Reaction Last Updated Verified Penicillins Allergy Intermediate 06/10/14 Yes cortisone Allergy Intermediate 06/10/14 Yes Physical Exam Physical Exam Current Patient Data Vital Signs Vital Signs Date Time Temp Pulse Resp B/P (MAP) Pulse Ox O2 Delivery O2 Flow Rate FiO2 05/07/18 16:39 97.9 75 16 95 Room Air EKG EKG EKG interpreted by me, Dr. Tian. EKG at 1653 showed sinus rhythm at rate of 67 , left stafford axis, poor R-wave progress in anteroseptal leads, no acute ST and T- wave abnormalities Radiology/Procedures Radiology/Procedures [] Impressions: CT Head W/O Contrast: History: Dizziness and headache today Comparison: none Axial images were obtained without contrast. The bellamy and white matter appears normal and symmetrical for the patients age. There is no mass effect, extraaxial fluid collections or hydrocephalus. There is no gross bleed. There is no focal loss of bellamy-white matter distinction to suggest acute ischemia, i.e. stroke. Impression: No acute findings. RS Compliance Statement: One or more of the following individualized dose reduction techniques were utilized for this examination: 1. Automated exposure control 2. Adjustment of the mA and/or kV according to patient size 3. Use of iterative reconstruction technique Electronically signed by: Allie Gutierrez III, MD (05/07/2018 5:33 PM) [facility] [place] PA and lateral chest HISTORY: Dizziness and headache PA and lateral views were taken of the chest. Lungs are clear. Heart is normal in size. There is no pleural effusion. IMPRESSION: 1. No acute infiltrates. Electronically signed by: Ming Triana MD (05/07/2018 5:38 PM) [facility] DICTATED AND SIGNED BY: MING TRIANA MD DATE: 05/07/18 173 CC: ENRICO TIAN MD; JAVIER BELLAMY ~ DICTATED AND SIGNED BY: ALLIE GUTIERREZ III, MD DATE: 05/07/18 173 CC: ENRICO TIAN MD; JAVIER BELLAMY ~ Course & Med Decision Making Course & Med Decision Making Pertinent Labs and Imaging studies are pending. Evaluation of patient in ER showed 48-year-old male patient with complaining of one episode of dizziness and diaphoresis that started about 20 minutes prior to arrival. Patient did not have any diaphoresis or dizziness but he was in ER. Patient had episodes of the same problem several emergency room visits negative extensive evaluation. Had unremarkable EKG but patient and his wanted reevaluation for dizziness. Patient care transferred to Dr. Enriquez at 1800. The patient's labs are unremarkable. His EKG is unremarkable. His troponin is negative. His head CT is negative. His chest x-rays negative. I discussed the patient's symptoms, and he is feeling better at this time. The dizziness seems to be improving. The patient has not had a couple workup for thyroid and other vitamin deficiencies with his PCP. He will follow-up in consider this evaluation. He will also consider an ENT consult for further evaluation for inner ear cause of his symptoms. Based on his current workup, I do not see any concerning signs that would warrant admission. He is in agreement and is willing to go home. He is stable for discharge at this time. Dragon Disclaimer Dragon Disclaimer This electronic medical record was generated, in whole or in part, using a voice recognition dictation system. Departure Departure: Referrals: JAVIER BELLAMY (PCP) ENRICO TIAN MD May 07, 2018 17:42 ABIMAEL ENRIQUEZ DO May 07, 2018 19:14
[2018-05-07 17:52] LABS: ALBUMIN/GLOBULIN RATIO 1.3 (1.0-1.7); GFR 79.1; POTASSIUM 3.2 mmol/L (3.5-5.1); TOTAL BILIRUBIN 0.5 mg/dL (0.2-1.0); TOTAL PROTEIN 7.1 g/dL (6.4-8.2)
--- NOTE | 2018-05-07 18:12 | EKG ---
[address] [address] Test Date: 2018-05-07 Test Time: 16:53:00 Pat Name: MIKE FLORENCE Department: Room: Gender: M Dye Tub Tender: : 1970 Requested By: ENRICO TIAN Order Number: [id number] Reading MD: Nathan Naranjo MD Measurements Intervals [place] Rate: 67 P: 39 UT: 166 QRS: -11 QRSD: 120 T: 48 QT: 444 QTc: 472 Interpretive Statements SINUS RHYTHM NON-SPECIFIC ST/T CHANGES Electronically Signed On 05-09-2018 13:42:08 CDT by Nathan Naranjo MD
[2018-05-07 18:46] LABS: BILIRUBIN,URINE NEG (NEG); CLARITY,URINE CLEAR; COLOR,URINE YELLOW; GLUCOSE,URINE NEG (NEG); NITRITE,URINE NEG (NEG); UROBILINOGEN,URINE 0.2 mg/dL (0.2 mg/dL)
[2018-05-07 18:47] LABS: BACTERIA,URINE 0 /HPF (0-FEW); BARBITURATES NEG (NEG); BENZODIAZEPINES NEG (NEG); CANNABINOIDS NEG (NEG); COCAINE NEG (NEG); METHADONE NEG (NEG); OPIATES NEG (NEG); PHENCYCLIDINE NEG (NEG); RBC,URINE RARE /HPF (0-2); SQUAMOUS EPITHELIAL CELL,UR OCC /LPF
[2018-05-07 18:48] LABS: AMPHETAMINE/METHAMPHETAMINE NEG (NEG)
[2018-05-07 19:14] VITALS: BP 128/73
== END 2018-05-07 19:51 | disposition home or self-care (01) ==
LOC: ER 16:37
DX: R42 Dizziness and giddiness (principal); R55 Syncope and collapse; R51 Headache; F41.9 Anxiety disorder, unspecified; Z88.0 Allergy status to penicillin; Z88.8 Allergy status to other drugs, medicaments and biological substances
CPT/HCPCS: 36415; 70450; 71046; 80053; 80307; 81001; 82550; 83605; 84484; 85025; 93005; 99285-25; G0479